=== PATIENT | female | born 1945 | race Caucasian/White ===

== ENCOUNTER 2016-09-09 16:15 | Emergency (ER) | payer MEDICARE, OTHER ==
[2016-09-09] MEDS ORDERED: ONDANSETRON HCL/PF 4 MG/ 2ML VIAL ONE (16:35)
[2016-09-09] MEDS ORDERED: ONDANSETRON HCL/PF 4 MG/ 2ML VIAL IVP ONE (16:38)
[2016-09-09 16:49] LABS: BASOPHILS % 0.4 (0.0-1.5); EOSINOPHILS % 4.4 % (0.0-6.8); MEAN CORPUSCULAR HEMOGLOBIN 32.6 pg (28.0-34.0); MONOCYTES # 0.2 # k/uL (0.0-0.9); MONOCYTES % 5.9 % (0.0-11.0); NEUTROPHILS # 2.5 # k/uL (1.4-7.7)
[2016-09-09] MEDS ORDERED: Lidocaine 2%Visc 15ml 20 MG/ML UDC PO ONE (16:51)
[2016-09-09] MEDS ORDERED: MAG HYDROX/AL HYDROX/SIMETH 30 ML UDC PO ONE (16:56)
[2016-09-09] MEDS ORDERED: HYOSCYAMINE SULFATE 0.125 MG TAB.SUBL SL ONE (16:57)
[2016-09-09 16:59] LABS: eGFR (African) > 60; eGFR (Non-African) > 60
[2016-09-09] MEDS ORDERED: Lidocaine 2%Visc 15ml 20 MG/ML UDC ONE (17:00)
[2016-09-09] MEDS ORDERED: MAGNESIUM HYDROXIDE/AL HYDROX 30 ML UDC PO ONE (17:00)
--- NOTE | 2016-09-09 18:19 | Diagnostic Imaging Report ---
LUCIEN MCELROY [facility] [address] [facility].[address] [address] Report Submission Date: Sep 09, 2016 5:14:21 PM INTRANET DEVELOPER Patient Study Name: PARKER AMAYA Date: Sep 09, 2016 4:51:25 PM INTRANET DEVELOPER Modality Type: CR Gender: F Description: CHEST : 45 Institution: [facility] Physician: LUCIEN MCELROY Pa and lateral chest Clinical history : Chest pain Comparison none Technique pa and lateral upright Findings: The lung trent are hyperinflated. There is an 8 mm left midlung field nodular density. A right middle lobe infiltrate or prominent epicardial fat pad is noted. No pleural effusions are seen. Thoracic spondylosis is present. Impression: 8 mm left lung nodular density. CT the chest is recommended Right middle lobe infiltrate versus epicardial fat pad Electronically signed on Sep 09, 2016 5:14:21 PM INTRANET DEVELOPER by: Leif RICO
[2016-09-10 00:42] VITALS: BP 144/76
--- NOTE | 2016-09-10 01:43 | Diagnostic Imaging Report ---
LUCIEN MCELROY~ [facility] [address] [facility].[address] [place] [address]. [id number] ~ ~ ~ ~ Report Submission Date: Sep 09, 2016 7:39:54 PM DRAWER IN JACQUARD LOOM Patient ~ Study Name: PARKER AMAYA ~ Date: Sep 09, 2016 7:04:20 PM DRAWER IN JACQUARD LOOM ~ Modality Type: CT\SR Gender: F ~ Description: CT ABD & PELVIS W/ CON : 45 ~ Institution: [facility] Physician: LUCIEN MCELROY ~ ~ ~ ~ CT abdomen and pelvis with IV contrast Clinical history: Abdominal pain, history of carcinoid 2 months ago. 97 mL omnipaque 350 Radiation dose DLP 354 Dense mass in the mid mesenteric region measures 4 x 2 centimeter with small calcifications represent carcinoid. Pulmonary emphysema of the visible lung bases. Vascular calcification without aneurysm. two 2 cm areas in the right lobe of the liver dense very vascular could represent hepatic metastases . Dilated distal small bowel loops represent ileus . normal kidneys . Lumbar spondylosis. No free fluid or free air in the abdomen or pelvis . 2.4 cm retroperitoneal lymph node at the level of left kidney represent metastases. 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
--- NOTE | 2016-09-10 06:47 | ED Physician Documentation ---
Chest Pain - HISTORIAN Historian: patient - HPI Stated Complaint: Chest Pain/Shortness of Breath Chief Complaint: Chest Pain Additional Information: pain between shoulder baldes and epigastrium Onset: hours (2) Timing: sudden onset, still present Duration: constant, sudden-onset Last known Well Date: 09/09/16 Last Known Well Time: 15:00 Last known Well Code/Unknown Code: Unknown Context: onset during:, activity Severity: mild Quality: aching Chest Pain Radiation: other (all in mid back, no anterior chest pain) Chest Pain Signs/Symptoms: nausea Worsened By: nothing Relieved By: nothing Further Comments: no - ROS CONST: none MS/LYMPH: none GI/: abdominal pain (epigastric) EYES/ENT: none SKIN/ENDO: none NEURO/PSYCH: none - PAST HX LA risk factors: other (carc[place] tumor ruq) DVT/PE Risk Factors: none TAD/AAA risk factors: none Neuro deficit: none GI disease: other (carc[place] tumor) Lung disease: none Surgeries/Procedures: other (t and a, d and c) Immunizations: referred to PCP Allergies/Adverse Reactions: Allergies Allergy/AdvReac Type Severity Reaction Status Date / Time No Known Allergies Allergy Unverified 09/09/16 16:38 Home Medications: Ambulatory Orders Medication Instructions Recorded Alprazolam [Xanax] 0.25 mg PO HS 09/09/16 Simvastatin [Simvastatin] 40 mg PO DAILY 09/09/16 - SOCIAL HX Smoking History: non-smoker Alcohol Use: none Drug Use: none - FAMILY HX Family HX: none - VITAL SIGNS Vital Signs: Vital Signs Temp Pulse Resp BP Pulse Ox 97.4 F L 92 H 16 144/76 96 09/09/16 16:20 09/09/16 20:55 09/09/16 20:55 09/09/16 20:55 09/09/16 20:55 - REVIEWED ASSESSMENTS Nursing Assessment Reviewed: Yes Vitals Reviewed: Yes Progress - Results/Orders Results/Orders: ekg, trop, cbc, cmp, amylase, cxr, ct abdomen/pelvis ordered - Progress Progress: pt. given hyoscyamine, viscous lidocaine, mylanta and zofran in am with resolution of sdymptoms Critical Care Note - Critical Care Note Total Time (mins): 0 ED Results Lab/Radiology - Lab Results Lab Results: Lab Results 0209/09/16 09/09/16 16:40 16:40 16:40 WBC RBC Hgb Hct MCV MCH MCHC RDW Plt Count Neut % (Auto) Lymph % (Auto) [place] % (Auto) Eos % (Auto) Baso % (Auto) Neut # Lymph # [place] # Eos # Baso # Reactive Lymphs % Reactive Lymphs # Sodium 145 mmol/L mmol/L (136-145) Potassium 3.4 mmol/L L mmol/L (3.5-5.0) Chloride 107 mmol/L mmol/L (98-110) Carbon Dioxide 26 mmol/L mmol/L (20-32) BUN 9 mg/dL L mg/dL (10-26) Creatinine 0.8 mg/dL mg/dL (0.4-1.5) Estimated Creat Clear 86 Est GFR ( Amer) > 60 (60 - ) Est GFR (Non-Af Amer) > 60 (60 - ) Glucose 166 mg/dL H mg/dL (70-99) Calcium 9.7 mg/dL mg/dL (8.5-10.5) Total Bilirubin 0.4 mg/dL mg/dL (0.2-1.2) AST 21 U/L U/L (0-41) ALT 14 U/L U/L (0-45) Alkaline Phosphatase 43 U/L L U/L (46-116) Creatine Kinase 82 U/L U/L (0-225) Troponin I < 0.03 ng/mL L ng/mL (0.03-0.06) Total Protein 7.1 g/dL g/dL (6.0-8.5) Albumin 4.4 g/dL g/dL (3.0-5.5) Amylase 21 U/L U/L (20-104) 09/09/16 16:40 WBC 4.00 K/ul K/ul (4.00-12.00) RBC 3.95 M/ul M/ul (3.90-5.20) Hgb 12.9 g/dL g/dL (12.0-16.0) Hct 37.6 % % (34.5-46.5) MCV 95.2 fl fl (80.0-100.0) MCH 32.6 pg pg (28.0-34.0) MCHC 34.3 g/dL g/dL (30.0-36.0) RDW 12.5 % % (11.3-14.3) Plt Count 173 K/mm3 K/mm3 (130-400) Neut % (Auto) 63.2 % % (39.0-79.0) Lymph % (Auto) 24.1 % % (16.0-50.0) [place] % (Auto) 5.9 % % (0.0-11.0) Eos % (Auto) 4.4 % % (0.0-6.8) Baso % (Auto) 0.4 (0.0-1.5) Neut # 2.5 # k/uL # k/uL (1.4-7.7) Lymph # 1.0 # k/uL # k/uL (0.6-4.0) [place] # 0.2 # k/uL # k/uL (0.0-0.9) Eos # 0.2 # k/uL # k/uL (0.0-0.6) Baso # 0.0 # k/uL # k/uL (0.0-0.5) Reactive Lymphs % 2.0 % % (0.0-5.0) Reactive Lymphs # 0.1 # k/uL # k/uL (0.0-0.8) Sodium Potassium Chloride Carbon Dioxide BUN Creatinine Estimated Creat Clear Est GFR ( Amer) Est GFR (Non-Af Amer) Glucose Calcium Total Bilirubin AST ALT Alkaline Phosphatase Creatine Kinase Troponin I Total Protein Albumin Amylase - Radiology Radiology Impressions: 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 - Orders Orders: ED Orders Category Date Time Status Continuous EKG monitoring Q30M Care 09/09/16 16:37 Active Continuous Pulse Oximetry Q30M Care 09/09/16 16:[address] Saline Lock/IV NOW Care 09/09/16 16:37 Active CHEST 2 VIEW [CHEST P.A.&LAT 2 VIEWS] [RAD] Stat Exams 09/09/16 16:[address] ABD & PELVIS W/ CON Routine Exams 09/09/16 16:58 Completed AMYLASE Routine Lab 09/09/16 16:40 Completed CBC/PLATELET/DIFF Routine Lab 09/09/16 16:40 Completed CMP Routine Lab 09/09/16 16:40 Completed CREATINE KINASE Routine Lab 09/09/16 16:40 Completed TROPONIN I (cTnI) Stat Lab 09/09/16 16:40 Completed Hyoscyamine Sulfate [Oscimin Sl] Med 09/09/16 16:57 Discontinued 0.25 mg SL NOW ONE Lidocaine 2%Visc 15ml [Xylocaine] Med 09/09/16 16:51 Discontinued 30 mg PO NOW ONE Lidocaine 2%Visc 15ml [Xylocaine] Med 09/09/16 17:00 Discontinued 300 mg .ROUTE .STK-MED ONE Mag Hydrox/Al Hydrox/Simeth [Mylanta] Med 09/09/16 16:56 Discontinued 30 ml PO NOW ONE Magnesium Hydroxide/Al Hydrox [Maalox] Med 09/09/16 17:00 Discontinued 30 ml PO .STK-MED ONE Ondansetron HCl/Pf [Zofran 4 mg/2 ml] Med 09/09/16 16:35 Discontinued 8 mg .ROUTE .STK-MED ONE Ondansetron HCl/Pf [Zofran 4 mg/2 ml] Med 09/09/16 16:38 Discontinued 8 mg IVP NOW ONE Oxygen Daily Oxygen 09/09/16 16:45 Ordered Oxygen Daily Oxygen 09/10/16 16:45 Ordered EKG WITH COMPARISON Stat Ther 09/09/16 16:37 Ordered Chest Pain Physical Exam - EXAM General Appearance: alert, mild distress EENT: eye inspection normal, ENT inspection normal, pharynx normal, no signs of dehydration, SAMINA, no nystagmus, TM's nml Neck: nml inspection, no carotid bruit Respiratory: no resp. distress, chest non-tender, nml breath sounds CVS: reg. rate & rhythm, no murmur, no gallop, no friction rub, pulses full, pulses equal Abdomen: soft, no organomegaly, normal bowel sounds, tenderness (epigastrium and mid abdomen) Skin: warm/dry, normal color Extremities: non-tender, normal range of motion, no evidence of injury, no edema Neuro: oriented X3, CN's nml as tested, motor nml, sensation nml, mood/affect nml, cognition normal Discharge Clincal Impression: Ileus Referrals: Primary Doctor,No [Primary Care Provider] - 2 Days Home Medications: Ambulatory Orders Alprazolam [Xanax] 0.25 mg PO HS 09/09/16 Simvastatin [Simvastatin] 40 mg PO DAILY 09/09/16 Comments: discharged with script for reglan 10 mg 1 p.o. qid Condition: Stable Disposition: 01 HOME, SELF-CARE Decision to Admit: NO Decision Time: 20:50
== END 2016-09-09 20:45 | disposition home or self-care (01) ==
LOC: ED 16:15 → EDSTATUS 16:33 → ED 20:40
DX: K56.7 Ileus, unspecified (principal)
CPT/HCPCS: 71020; 74177; 80053; 82150; 82550; 84484; 85025; 93005; A9270; J2405; Q9966; 96374; 99283; A9698; S1016